=== PATIENT | male | born 1960 | race Caucasian/White ===

== ENCOUNTER 2018-09-05 07:34 | Emergency (ER) | payer OTHER ==
[~2018-09-05] VITALS: Ht 165.1 cm; Wt 70.0 kg
[2018-09-05] MEDS ORDERED: IBUPROFEN 800MG TABLET PO ONE (10:30)
[2018-09-05 12:01] VITALS: BP 122/66
== END 2018-09-05 12:03 | disposition home or self-care (01) ==
LOC: ER 07:34
DX: S20.211A Contusion of right front wall of thorax, initial encounter (principal); W01.0XXA Fall on same level from slipping, tripping and stumbling without subsequent striking against object, initial encounter; Y93.89 Activity, other specified; Y92.89 Other specified places as the place of occurrence of the external cause; Y99.8 Other external cause status
CPT/HCPCS: 71100; 99283